=== PATIENT | female | born 2000 | race Two or more races ===

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

== ENCOUNTER 2020-11-07 14:15 | Inpatient (IN) | payer MEDICAID, OTHER ==
[~2020-11-07] VITALS: Ht 152.4 cm; Wt 56.0 kg
[~2020-11-07 14:15] MED LIST: ETON68IM3 SD
[2020-11-07 14:52] LABS: BASOPHILS % (AUTO) 0.3 % (0.0-2.0); EOSINOPHILS % (AUTO) 1.2 % (1.0-6.0); HEMATOCRIT 43.1 % (36-46); HEMOGLOBIN 14.2 g/dL (12.0-16.0); LYMPHOCYTES # (AUTO) 1.8 K/uL (1.0-4.8); LYMPHOCYTES % (AUTO) 16.5 % (22.0-44.0); MEAN CORPUSCULAR HEMOGLOBIN 29.3 pg (26.0-34.0); MEAN CORPUSCULAR VOLUME 89 fL (80-100); MONOCYTES # (AUTO) 0.7 K/uL (0.1-1.0); MONOCYTES % (AUTO) 6.1 % (2.0-9.0); NEUTROPHILS # (AUTO) 8.1 K/uL (1.8-7.7); NEUTROPHILS % (AUTO) 75.9 % (40.0-70.0); PLATELET COUNT (AUTO) 335 K/uL (150-450); RED BLOOD CELL COUNT(AUTO) 4.85 MIL/uL (4.00-5.20); RED CELL DISTRIBUTION WIDTH 13.6 % (11.5-14.5)
[2020-11-07 15:00] LABS: ANION GAP 11 mmol/L (8-16); CALCIUM, TOTAL 9.4 mg/dL (8.8-10.5); CARBON DIOXIDE 27 mmol/L (22-29); CHLORIDE 106 mmol/L (98-107); CREATININE 0.67 mg/dL (0.60-1.30); GLOMERULAR FILTR. RATE CALC > 60 mL/min (>60); GLUCOSE,RANDOM 96 mg/dL (70-110); POTASSIUM 4.1 mmol/L (3.5-5.1); SODIUM SERUM 144 mmol/L (136-145); UREA NITROGEN, BLOOD 8 mg/dL (7-18)
[2020-11-07 15:07] LABS: ALANINE AMINOTRANSFERASE 17 U/L (12-78); ALBUMIN 4.2 g/dL (3.4-5.0); ALKALINE PHOSPHATASE 83 U/L (46-116); ASPARTATE AMINOTRANSFERASE 17 U/L (15-37); BILIRUBIN,TOTAL 0.5 mg/dL (0.1-1.0); TOTAL PROTEIN, SERUM 8.4 g/dL (6.4-8.2)
[2020-11-07 15:41] LABS: AMPHET/METH SCREEN,URINE NEGATIVE (NEGATIVE); BARBITURATE SCREEN, URINE NEGATIVE (NEGATIVE); BENZODIAZEPINES SCREEN,URINE NEGATIVE (NEGATIVE); CANNABINOID SCREEN,URINE NEGATIVE (NEGATIVE); COCAINE SCREEN,URINE NEGATIVE (NEGATIVE); METHADONE SCREEN, URINE NEGATIVE (NEGATIVE); OPIATE SCREEN,URINE NEGATIVE (NEGATIVE)
[2020-11-07 15:42] LABS: PHENCYCLIDINE SCREEN,URINE NEGATIVE (NEGATIVE)
[2020-11-07] MEDS ORDERED: TUBERCULIN, PURIFIED PROTEIN DERIVATIVE 5 TU/0.1 ML SYRINGE ID ONE (19:15)
[2020-11-07] MEDS ORDERED: LORazepam 2 MG TABLET PO PRN (19:15)
[2020-11-07] MEDS ORDERED: HydrOXYzine PAMOATE 50 MG CAPSULE PO PRN (19:15)
[2020-11-07] MEDS ORDERED: ZOLPIDEM TARTRATE 10 MG TABLET PO PRN (19:15)
[2020-11-07] MEDS ORDERED: GuaiFENesin/D-METHORPHAN [SUGAR-FREE] 200-20MG/10 ML SYRUP UDCUP PO PRN (19:15)
[2020-11-07] MEDS ORDERED: ACETAMINOPHEN 325 MG TABLET PO PRN (19:15)
[2020-11-07] MEDS ORDERED: QUEtiapine FUMARATE 100 MG TABLET PO PRN (19:15)
[2020-11-07] MEDS ORDERED: MAGNESIUM HYDROXIDE SUSPENSION 30 ML UDCUP PO PRN (19:15)
[2020-11-07] MEDS ORDERED: MAG HYDROX/AL HYDROX/SIMETH ES 30 ML SUSPENSION UDCUP PO PRN (19:15)
[2020-11-07] MEDS ORDERED: PROMETHAZINE HCL 25 MG TABLET PO PRN (19:15)
[2020-11-07] MEDS ORDERED: LOPERAMIDE HCL 2 MG CAPSULE PO PRN (19:15)
[2020-11-07 19:38] LABS: HCG,QUANTITATIVE < 1 mIU/mL (0-6)
[2020-11-07 20:19] LABS: COVID AG,FIA SOURCE NASOPHARYNGEAL
[2020-11-07 21:58] VITALS: BP 126/75
[2020-11-07] MEDS: MELATONIN 5 MG TABLET PO SCH (22:10)
[2020-11-07] MEDS: THIAMINE 100 MG TABLET PO SCH (22:11)
[2020-11-08 06:44] LABS: CHOL/HDL RATIO 3.6 (3.9-5.7); FREE T4 (FREE THYROXINE) 0.92 ng/dL (0.76-1.46); THYROID STIMULATING HORMONE 1.08 uIU/mL (0.36-3.74)
[2020-11-08 06:45] LABS: HEMOGLOBIN A1C 5.6 % (3.8-5.6)
[2020-11-08 08:37] VITALS: BP 114/60
[2020-11-08] MEDS: THIAMINE 100 MG TABLET PO SCH ×2 (09:18→16:15)
[2020-11-08] MEDS: OMEGA-3/DHA/EPA/FISH OIL 1,000 MG CAPSULE PO SCH (09:18)
[2020-11-08] MEDS: MULTIVITAMINS WITH MINERALS, THERAPEUTIC TABLET PO SCH (09:18)
[2020-11-08] MEDS: FLUoxetine HCL 20 MG CAPSULE PO SCH (09:18)
[2020-11-08] MEDS: FOLIC ACID 1 MG TABLET PO SCH (09:18)
[2020-11-08 16:43] VITALS: BP 107/72
[2020-11-08] MEDS ORDERED: FLUO20CA36 PO (18:40)
[2020-11-08] MEDS ORDERED: OMEG-135 PO (18:40)
[2020-11-08] MEDS ORDERED: MELA5TAB3 PO (18:40)
[2020-11-08] MEDS: MELATONIN 5 MG TABLET PO SCH (20:13)
[2020-11-09 08:00] VITALS: BP 122/66
[2020-11-09] MEDS: FOLIC ACID 1 MG TABLET PO SCH (08:10)
[2020-11-09] MEDS: FLUoxetine HCL 20 MG CAPSULE PO SCH (08:10)
[2020-11-09] MEDS: MULTIVITAMINS WITH MINERALS, THERAPEUTIC TABLET PO SCH (08:10)
[2020-11-09] MEDS: THIAMINE 100 MG TABLET PO SCH (08:10)
[2020-11-09] MEDS: OMEGA-3/DHA/EPA/FISH OIL 1,000 MG CAPSULE PO SCH (08:10)
== END 2020-11-09 13:10 | disposition home or self-care (01) | DRG 751 ==
LOC: EMS 15:16 → 3EC 19:11
PROVIDERS: ADMIT Psychiatry & Neurology Psychiatry; ATTEND Psychiatry & Neurology Psychiatry
DX: F33.9 Major depressive disorder, recurrent, unspecified (principal); F43.10 Post-traumatic stress disorder, unspecified; S61.511A Laceration without foreign body of right wrist, initial encounter; S61.512A Laceration without foreign body of left wrist, initial encounter; Z20.822 Contact with and (suspected) exposure to COVID-19; X58.XXXA Exposure to other specified factors, initial encounter; Z55.9 Problems related to education and literacy, unspecified; Z59.9 Problem related to housing and economic circumstances, unspecified; Z65.3 Problems related to other legal circumstances; Z81.8 Family history of other mental and behavioral disorders; Y93.89 Activity, other specified; Y92.89 Other specified places as the place of occurrence of the external cause; Y99.8 Other external cause status
CPT/HCPCS: 80053; 80061; 83036; 84439; 84443; 84702; 85025; 86592; 99285; A9575; G0480